=== PATIENT | male | born 1975 | race Caucasian/White ===

== ENCOUNTER 2021-03-04 18:38 | Emergency (ER) | payer OTHER | END 2021-03-04 21:00 | disposition left against medical advice (07) | LOC: ER1 18:38 | DX: M54.2 Cervicalgia (principal); R07.89 Other chest pain; V49.40XA Driver injured in collision with unspecified motor vehicles in traffic accident, initial encounter; Y92.410 Unspecified street and highway as the place of occurrence of the external cause | CPT/HCPCS: 90715; 99283 ==